=== PATIENT | male | born 1970 | race African-American/Black ===

== ENCOUNTER 2023-10-13 08:12 | Emergency (ER) | payer MEDICAID ==
[~2023-10-13] VITALS: Ht 170.2 cm; Wt 73.2 kg
[~2023-10-13 08:12] MED LIST: IBUP-1984 PO
[2023-10-13 08:16] VITALS: BP 158/108; PULSE 74; RESP 18; TEMP 97.8; O2SAT 100
== END 2023-10-13 09:42 | disposition home or self-care (01) ==
LOC: ER 08:13
DX: N48.30 Priapism, unspecified (principal); F12.90 Cannabis use, unspecified, uncomplicated; Z79.1 Long term (current) use of non-steroidal anti-inflammatories (NSAID)
CPT/HCPCS: 99281